=== PATIENT | male | born 1950 | race Caucasian/White ===

== ENCOUNTER 2021-06-04 17:05 | Outpatient (CLI) | payer OTHER | END 2021-06-04 17:06 | disposition critical access hospital (66) | LOC: EMS 17:05 | DX: R07.9 Chest pain, unspecified (principal); I48.91 Unspecified atrial fibrillation | CPT/HCPCS: A0425; A0427 ==

== ENCOUNTER 2021-06-04 17:21 | Inpatient (IN) | payer OTHER, MEDICARE ==
--- NOTE | 2021-06-04 17:53 | ED Physician Documentation ---
PD HPI CHEST PAIN - Stated complaint Stated Complaint: CP - Chief complaint Chief Complaint: Cardiac - History obtained from History obtained from: Patient - Additional information Additional information: 71-year-old gentleman with no history of known coronary disease, negative stress testing about 5 years ago, comorbidities include morbid obesity, hypertension, and hyperlipidemia. He was watching the [place] game and around 3 PM and developed sudden severe diffuse chest pain associated with shortness of breath, sweatiness and nausea. It started after eating a pork chop. It has mostly abated now. There is some still very mild low chest pressure. Review of Systems Ten Systems: 10 systems reviewed and negative Constitutional: reports: Reviewed and negative Throat: reports: Reviewed and negative Respiratory: reports: Reviewed and negative PD PAST MEDICAL HISTORY - Present Medications Home Medications: Ambulatory Orders Medication Instructions Recorded Confirmed Amlodipine Besylate [Norvasc] 10 mg PO DAILY 06/04/21 06/04/21 Colchicine 0.6 mg PO DAILY 06/04/21 06/04/21 Losartan Potassium [Cozaar] 100 mg PO BID 06/04/21 06/04/21 Simvastatin [Zocor] 40 mg PO HS 06/04/21 06/04/21 allopurinoL [Zyloprim] 100 mg PO DAILY 06/04/21 06/04/21 metOLazone [Metolazone] 5 mg PO DAILY 06/04/21 06/04/21 - Allergies Allergies/Adverse Reactions: Allergies Allergy/AdvReac Type Severity Reaction Status Date / Time No Known Drug Allergies Allergy Verified 06/04/21 17:39 PD ED PE NORMAL - Vitals Vital signs reviewed: Yes - General General: Alert and oriented X 3, No acute distress - HEENT HEENT: PERRL, EOMI - Neck Neck: Supple, no meningeal sign, No bony TTP - Cardiac Cardiac: RRR, No murmur - Respiratory Respiratory: No respiratory distress, Clear bilaterally - Abdomen Abdomen: Normal bowel sounds, Soft, Other (Mild upper abdominal tenderness, slightly worse on the right than the left,) - Back Back: No CVA TTP, No spinal TTP - Extremities Extremities: No edema, No calf tenderness / cord, Other (Venous stasis changes of both legs) - Neuro Neuro: Alert and oriented X 3, Normal speech - Psych Psych: Normal mood, Normal affect Results - Vitals Vitals: Vital Signs - 24 hr 06/04/21 06/04/21 06/04/21 17:33 19:39 21:00 Temperature 37.1 C Heart Rate 97 85 83 Respiratory 16 16 16 Rate Blood Pressure 144/63 H 160/97 H 137/73 H O2 Saturation 95 95 96 Oxygen O2 Source Room air - EKG (time done) 1736 Rate: Rate (enter#) (89) Rhythm: NSR (With frequent PACs) [place]: Normal Intervals: Prolonged FL, Other (LAFB) QRS: Normal Ischemia: Normal ST segments, Non specific changes - Labs Labs: Laboratory Tests 06/04/21 06/04/21 06/04/21 17:53 17:53 17:53 WBC 8.8 RBC 3.92 L Hgb 12.9 L Hct 40.4 L MCV 103.1 H MCH 32.9 H MCHC 31.9 L RDW 14.6 Plt Count 173 MPV 9.5 Neut # (Auto) 6.8 H Lymph # (Auto) 1.2 L [place] # (Auto) 0.6 Eos # (Auto) 0.2 Baso # (Auto) 0.1 Absolute Nucleated RBC 0.00 Nucleated RBC % 0.0 Sodium 143 Potassium 3.7 Chloride 103 Carbon Dioxide 29 Anion Gap 11.0 BUN 32 H Creatinine 1.7 H Estimated GFR (MDRD) 40 L Glucose 111 H Calcium 9.0 Total Bilirubin 1.0 AST 138 H ALT 104 H Alkaline Phosphatase 81 Troponin I High Sens 13.8 Total Protein 7.1 Albumin 3.9 Globulin 3.2 Albumin/Globulin Ratio 1.2 Lipase 2544 H Ethyl Alcohol 06/04/21 17:53 WBC RBC Hgb Hct MCV MCH MCHC RDW Plt Count MPV Neut # (Auto) Lymph # (Auto) [place] # (Auto) Eos # (Auto) Baso # (Auto) Absolute Nucleated RBC Nucleated RBC % Sodium Potassium Chloride Carbon Dioxide Anion Gap BUN Creatinine Estimated GFR (MDRD) Glucose Calcium Total Bilirubin AST ALT Alkaline Phosphatase Troponin I High Sens Total Protein Albumin Globulin Albumin/Globulin Ratio Lipase Ethyl Alcohol < 5.0 PD MEDICAL DECISION MAKING - ED course ED course: 71-year-old gentleman presents with acute chest pain, on exam he does have some upper abdominal tenderness. Although his pain is much better than it was at home. He does not drink of significance. He did have 2 drinks a couple of nights ago. Used to drink heavily maybe 8 years ago. Work-up demonstrates biochemical pancreatitis with lipase of 2552 and very mild transaminitis without biochemical evidence of obstruction. Ultrasound showing potential cholecystitis, but no stones and this was followed by CT showing no biliary ductal dilatation etc. Case was discussed by phone with Dr. Bhatia, our on-call surgeon who will consult but does not feel like the patient needs urgent surgery. Spoke with Dr. Tran for admission at approximately 9:30 PM. Departure - Departure Disposition: 66 [facility] DC/Xfer Clinical Impression: Pancreatitis Condition: Good Record reviewed to determine appropriate education?: Yes
--- NOTE | 2021-06-04 17:59 | XRAY Report ---
PROCEDURE: Chest 1 View X-Ray INDICATIONS: Chest Pain TECHNIQUE: One view of the chest was acquired. COMPARISON: None FINDINGS: Surgical changes and devices: None. Lungs and pleura: Low lung volumes can be seen, causing a crowded appearance to the lung markings. M ild interstitial prominence can be seen. On the semiupright images, no large pneumothorax or large pl eural effusions can be seen. There is elevation right hemidiaphragm. Mediastinum: Mediastinal contours appear normal. Heart size is normal. Bones and chest wall: No suspicious bony lesions. Overlying soft tissues appear unremarkable. IMPRESSION: Limited chest study, with low lung volumes. Mild interstitial prominence can be seen. In this patient with low lung volumes, differential diagnos is includes artifact and pulmonary edema. Atypical infiltrate (including COVID pneumonia) is also pos sible, yet considered to be less likely. Please consider a short-term follow-up 2 view chest series (performed in deep inspiration) for furthe r evaluation. Elevation of the right hemidiaphragm can be seen. Reviewed by: Ambrosio Guerrero MD on 06/04/2021 4:58 PM [place] Approved by: Ambrosio Guerrero MD on 06/04/2021 4:58 PM [facility] Station ID: [id number]
[2021-06-04 18:05] LABS: BASOPHILS # (AUTO) 0.1 10^3/uL (0.0-0.1); BASOPHILS % (AUTO) 0.6 %; EOSINOPHILS # (AUTO) 0.2 10^3/uL (0.0-0.7); EOSINOPHILS % (AUTO) 1.8 %; HCT - HEMATOCRIT 40.4 % (42.0-52.0); HGB - HEMOGLOBIN 12.9 g/dL (14.0-18.0); LYMPHOCYTES # (AUTO) 1.2 10^3/uL (1.5-3.5); MEAN CORPUSCULAR HEMOGLOBIN 32.9 pg (27.0-31.0); MEAN CORPUSCULAR HGB CONC 31.9 g/dL (32.0-36.0); MEAN CORPUSCULAR VOLUME 103.1 fL (80.0-94.0); MEAN PLATELET VOLUME 9.5 fL (7.4-11.4); MONOCYTES # (AUTO) 0.6 10^3/uL (0.0-1.0); MONOCYTES % (AUTO) 7.1 %; NEUTROPHILS # (AUTO) 6.8 10^3/uL (1.5-6.6); NEUTROPHILS % (AUTO) 77.2 %; PLT - PLATELET COUNT 173 10^3/uL (130-450); RED BLOOD COUNT 3.92 10^6/uL (4.70-6.10); RED CELL DISTRIBUTION WIDTH 14.6 % (12.0-15.0); WHITE BLOOD COUNT 8.8 x10^3/uL (4.8-10.8)
[2021-06-04 18:48] LABS: ALBUMIN 3.9 g/dL (3.2-5.5); CREATININE 1.7 mg/dL (0.6-1.2); POTASSIUM 3.7 mmol/L (3.5-5.0); TOTAL PROTEIN 7.1 g/dL (6.7-8.2)
[2021-06-04 18:49] LABS: ALBUMIN/GLOBULIN RATIO 1.2 (1.0-2.2)
--- NOTE | 2021-06-04 19:21 | Ultrasound Report ---
PROCEDURE: Abdomen Limited INDICATIONS: RUQ pain TECHNIQUE: Real-time focused scanning was performed of the abdomen, with image documentation. COMPARISON: None FINDINGS: Suboptimal technical quality reportedly due to patient body habitus and difficulty with co operation. Visible portions of the liver diffusely echogenic. The liver is enlarged measuring about 21.8 cm in l ength. No perihepatic fluid. The visible portions of the gallbladder demonstrate internal nodularity suggesting adenomyomatosis or several tiny adherent polyps. No dominant stones are visible. There is questionable wall thickening up to 6 mm. There was a positive Hendrickson's sign per the technologist. The neck of the gallbladder was not well seen due to lack of good acoustic window. The extrahepatic common duct is normal caliber measuring 6 mm. The pancreas was not well seen. The stewart bmitted images the right kidney are normal. IMPRESSION: 1. Findings equivocal for acute cholecystitis given suboptimal technical quality. 2. There is wall thickening and a reported sonographic Hendrickson's sign, but no visible obstructing ston e. 3. Internal nodularity of the gallbladder lumen suggests adenomyomatosis, tiny adherent granular calc deya, or tiny cholesterol polyps. 4. Clinical correlation is recommended. Reviewed by: Luz Moore MD on 06/04/2021 7:19 PM PST Approved by: Luz Moore MD on 06/04/2021 7:19 PM PST Station ID: [id number]
[2021-06-04] MEDS ORDERED: IOVERSOL 320 100 ML VIAL IVP ONE ×2 (19:44→20:15)
--- NOTE | 2021-06-04 21:00 | CT Report ---
PROCEDURE: Abdomen/Pelvis W INDICATIONS: IV only pancreatitis CONTRAST: IV CONTRAST: Optiray 320 ml: 100 PO CONTRAST: *NO PO CONTRAST TECHNIQUE: After the administration of IV contrast, 5 mm thick sections acquired from the diaphragms to the symp hysis. 5 mm thick coronal and sagittal reformats were acquired. For radiation dose reduction, the f ollowing was used: automated exposure control, adjustment of mA and/or kV according to patient size. COMPARISON: None. Correlation made to ultrasound performed the same day. FINDINGS: Image quality: Excellent. ABDOMEN: Lung bases: Atelectatic changes present at the right lung base. Asymmetric elevation of the right hem idiaphragm. Heart size is normal. There is moderate coronary artery calcification. No hiatal hernia. Solid organs: The liver is normal size and attenuation. No masses. The gallbladder has normal CT appe arance without evidence of wall thickening or calcified stones. The common duct is normal caliber. No pericholecystic fluid or fat stranding. The spleen is normal size. No adrenal nodules. There is mild inflammation around the uncinate process of the pancreas and slight adjacent fascial th ickening. The body and tail are normal. There is no ductal dilatation. The kidneys are normal for siz e. There are cystic lesions present arising exophytically from both kidneys. No hydronephrosis or sto pamela. Ureters are nondilated.. Peritoneum and bowel: Stomach and bowel loops demonstrate normal wall thickness and caliber. Normal appendix. No free fluid or air. Nodes and vessels: No retroperitoneal or mesenteric adenopathy by size criteria. Aorta and inferior vena cava are normal in size. Moderate abdominal aortic calcification. Miscellaneous: No ventral he rnias. PELVIS: Genitourinary: Bladder wall thickness is normal. Normal prostate. Miscellaneous: No inguinal hernias or adenopathy. Bones: No suspicious bony lesions. No vertebral body compression fractures. Multilevel degenerative disc height loss throughout the lumbar spine with multilevel mild central canal stenosis. IMPRESSION: 1. Findings of mild acute pancreatitis of the uncinate process. 2. Normal CT appearance of the gallbladder. 3. Bilateral renal cysts. Reviewed by: Luz Moore MD on 06/04/2021 8:59 PM PST Approved by: Luz Moore MD on 06/04/2021 8:59 PM PST Station ID: [id number]
[2021-06-04] MEDS: D5.45NS W/20 MEQ KCL 1,000 ML IV SCH (21:27)
[2021-06-04] MEDS ORDERED: SODIUM CHLORIDE FLUSH 0.9% 10 ML SYRINGE IVP PRN (21:43)
[2021-06-04] MEDS ORDERED: ACETAMINOPHEN 1,000 MG/100 ML 100 ML IV PRN (21:46)
[2021-06-04] MEDS ORDERED: NITROGLYCERIN SL 0.4 MG TABLET SL PRN (21:48)
--- NOTE | 2021-06-04 21:54 | HISTORY & PHYSICAL EXAMINATION ---
Chief Complaint - Chief Complaint Chief Complaint: Chest pain and abdominal pain History of Present Illness - Admitted From Admitted From:: ED - History Obtained From History obtained from: ED provider and the patient - History of Present Illness HPI Comment/Other: This is a 71-year-old white male with history of morbid obesity (BMI 50), hypertension, gout, and hyperlipidemia. He used to drink alcohol heavily, but quit 7 years ago, now drinks only rareely. Patient presents with sudden onset of chest pain and upper abdominal pain that occurred after he ate a pork chop. It was assosiated with SOB and sweating. He has never had such symptoms before. His gave him a baby aspirin and they called an ambulance. By the time he presented to the ED the chest pain was gone (it lasted 30-45 min). His exam showed a tender upper abdomen. He underwent an abdominal ultrasound which showed suspicious gallbladder findings. Then he had a CT of the abdomen which showed mild pancreatitis and no gallbladder abnormality. Labs showed white count normal, AST and ALT mildly elevated, normal bilirubin, and elevated lipase level of 2500. The patient is being admitted as Inpatient for treatment of acute pancreatitis and evaluation of chest pain in a male with significant risk factors. We discussed his CODE BLUE wishes and he wants to be a Full Code. History - Past Medical History Cardiovascular: reports: Hypertension, High cholesterol Respiratory: reports: Sleep apnea, CPAP use Neuro: reports: None, Peripheral neuropathy Endocrine/Autoimmune: reports: None GI: reports: Ulcers : reports: Renal insuffiency HEENT: reports: Chronic hearing loss Psych: reports: None Musculoskeletal: reports: Gout, Other (He requires a walker for ambulating because of right knee and hip pain. Surgery is planned on these when he loses 130 lbs.) Derm: reports: Other (Has wound on posterior thigh, sees a wound provider.) MRSA Hx?: No - Family & Social History Family History: Mother: (Heart disease ran in the father's side), Father: , Other family: Alive and Well (2 adult children) Family History Comment/Other: He is an only child. Living arrangement: At home Living Situation: With spouse/s.o. Social History Notes: Quit smoking and quit alcohol heavy use 7 years ago. No recreational drug use history. 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 They bought a house in [place] and are planning to move here when he retires in 1 year. - Substance History Use: Uses substance without health or social issues: Alcohol Meds/Allgy - Home Medications Home Medications: Ambulatory Orders Medication Instructions Recorded Confirmed Amlodipine Besylate [Norvasc] 10 mg PO DAILY 06/04/21 06/04/21 Colchicine 0.6 mg PO DAILY 06/04/21 06/04/21 Losartan Potassium [Cozaar] 100 mg PO BID 06/04/21 06/04/21 Simvastatin [Zocor] 40 mg PO HS 06/04/21 06/04/21 allopurinoL [Zyloprim] 100 mg PO DAILY 06/04/21 06/04/21 metOLazone [Metolazone] 5 mg PO DAILY 06/04/21 06/04/21 - Allergies Allergies/Adverse Reactions: Allergies Allergy/AdvReac Type Severity Reaction Status Date / Time No Known Drug Allergies Allergy Verified 06/04/21 17:39 Review of Systems - Cardiovascular Cariovascular: reports: Chest pain - Respiratory Respiratory: reports: Apnea - Gastrointestinal Gastrointestinal: reports: Abdominal pain - All Other Systems All Other Systems: reports: Reviewed and negative Exam - Vital Signs Reviewed Vital Signs: Yes Vital Signs: Vital Signs x48h Temp Pulse Resp BP Pulse Ox 06/04/21 21:00 83 16 137/73 H 96 06/04/21 19:39 85 16 160/97 H 95 06/04/21 17:33 37.1 C 97 16 144/63 H 95 - Physical Exam General Appearance: positive: Mild distress (He rates his abdominal pain at a 4- 6/10 currently) Eyes Bilateral: positive: Normal inspection, EOMI ENT: positive: ENT inspection nml, No signs of dehydration Neck: positive: Nml inspection, No JVD Respiratory: positive: No respiratory distress, Breath sounds nml Cardiovascular: positive: Regular rate & rhythm (Very distant heart sounds becau se of morbid obesity) Abdomen: positive: Other (Obese with pannus, distended and hypertympanic, diminished bowel sounds, no guarding or rebound) Skin: positive: Warm, Dry Extremities: positive: Other (1+ pretibial edema and venous stasis changes of the shins. The left posterior upper thigh has a pressure ulcer) Neurologic/Psychiatric: positive: Oriented x3 (Non-focal) Conclusion/Plan - Problem List (1) Pancreatitis Conclusion/Plan: Etiology is unclear as he denies alcohol abuse, his last drink was 2 days ago, and we found no gallbladder abnormality with imaging. Admit to having been told he has high triglycerides which may be the cause. Will order bowel rest with strict n.p.o. except ice chips. We will give IV pain meds. We will change his usual home medications to IV forms. Follow lipase daily. Check fasting triglyceride level in a.m. Qualifiers: Chronicity: acute Pancreatitis type: unspecified pancreatitis type (2) Chest pain Conclusion/Plan: His admission EKG is abnormal, showing QS waves in V1 and V2, suggesting old rodo-septal [place]. He has never been at this hospital before, to see a comparison EKG. This patient's cardiac risk factors for CAD include male gender, morbid obesity, hypertension, hyperlipidemia. Will order serial troponins. Will order sublingual nitroglycerin as needed for recurrence of any chest pain. We will consider doing stress testing as an inpatient if his abdominal pain from pancreatitis is under control. (3) HTN (hypertension) Conclusion/Plan: He is on amlodipine and metolazone which control blood pressure for him at home. We will switch to IV meds while he is n.p.o. and use hydralazine scheduled for blood pressure control (4) Sleep apnea with use of continuous positive airway pressure (CPAP) Conclusion/Plan: Will order his home CPAP device to be brought in and used while he is here (5) CKD (chronic kidney disease) stage 3, GFR 30-59 ml/min Conclusion/Plan: As per Hx. Avoid nephrotoxins (6) Gout Conclusion/Plan: He will be without his colchicine while he is n.p.o. (7) Macrocytic anemia Conclusion/Plan: This is a suspicious finding if he states that he now has not abused alcohol in over 7 years. We will check B12 and folate levels and replace if low (8) Pressure ulcer of left thigh Conclusion/Plan: Likely relate to his morbid obesity. Will order [facility] wound clinic consult, topical care, turning and repositioning. (9) Morbid obesity with BMI of 50.0-59.9, adult Conclusion/Plan: As per Hx He has chronic venous stasis changes. Will order leg elevation whenever he is out of bed in a chair - Lab Results Fish Bones: 06/04/21 17:53 06/04/21 17:53 - EKG Results EKG Interpreted Independently: Yes EKG Comparison: Old EKG unavailable EKG Findings: Sinus rhythm, rate 89, frequent PACs, left anterior fascicular block, QS waves in V1 and V2 and poor R wave progression. - Other Other Results/Comments: Attestation: The patient is expected to be discharged or transferred to another facility within 96 hours: Yes.
[2021-06-04] MEDS ORDERED: D5.45NS W/20 MEQ KCL 1,000 ML IV SCH (22:00)
[2021-06-04 22:40] LABS: B. PARAPERTUSSIS- RESP PCR PAN NOT DETECTED; B. PERTUSSIS- RESP PCR PANEL NOT DETECTED; C. PNEUMONIAE- RESP PCR PANEL NOT DETECTED; CORONAVIRUS 229E-RESP PCR NOT DETECTED; CORONAVIRUS HKU1-RESP PCR NOT DETECTED; CORONAVIRUS NL63-RESP PCR NOT DETECTED; CORONAVIRUS OC43-RESP PCR NOT DETECTED; HUMAN METAPNEUMOVIRUS NOT DETECTED; INFLUENZA A- RESP PCR PANEL NOT DETECTED; INFLUENZA B - RESP PCR PANEL NOT DETECTED; M. PNEUMONIAE- RESP PCR PANEL NOT DETECTED; PARAINFLUENZA VIRUS 1 NOT DETECTED; PARAINFLUENZA VIRUS 2 NOT DETECTED; PARAINFLUENZA VIRUS 3 NOT DETECTED; PARAINFLUENZA VIRUS 4 NOT DETECTED; RHINOVIRUS/ENTEROVIRUS NOT DETECTED; RSV- RESP PCR PANEL NOT DETECTED; SARS-CoV-2 -RESP PCR PANEL NOT DETECTED
[2021-06-04] MEDS: hydrALAZINE INJ 20 MG/ML VIAL IVP SCH (23:17)
[2021-06-04] MEDS: SODIUM CHLORIDE FLUSH 0.9% 10 ML SYRINGE IVP SCH ×2 (23:20→23:48)
[2021-06-04] MEDS: HYDROmorphone 1 MG/ML CARPUJECT IVP PRN (23:47)
[2021-06-05] MEDS: NYSTATIN POWDER 15 GM TOP SCH ×3 (00:39→20:24)
[2021-06-05] MEDS: SODIUM CHLORIDE FLUSH 0.9% 10 ML SYRINGE IVP SCH ×2 (05:20→23:47)
[2021-06-05] MEDS: HYDROmorphone 1 MG/ML CARPUJECT IVP PRN ×3 (05:20→16:17)
[2021-06-05] MEDS: D5.45NS W/20 MEQ KCL 1,000 ML IV SCH ×3 (05:25→22:24)
[2021-06-05 06:11] LABS: BASOPHILS % (AUTO) 0.6 %; EOSINOPHILS # (AUTO) 0.3 10^3/uL (0.0-0.7); EOSINOPHILS % (AUTO) 5.1 %; HCT - HEMATOCRIT 38.2 % (42.0-52.0); HGB - HEMOGLOBIN 12.3 g/dL (14.0-18.0); LYMPHOCYTES # (AUTO) 1.8 10^3/uL (1.5-3.5); LYMPHOCYTES % (AUTO) 27.9 %; MEAN CORPUSCULAR HEMOGLOBIN 33.2 pg (27.0-31.0); MEAN CORPUSCULAR HGB CONC 32.2 g/dL (32.0-36.0); MEAN CORPUSCULAR VOLUME 103.2 fL (80.0-94.0); MEAN PLATELET VOLUME 9.5 fL (7.4-11.4); MONOCYTES # (AUTO) 0.6 10^3/uL (0.0-1.0); MONOCYTES % (AUTO) 9.8 %; NEUTROPHILS # (AUTO) 3.6 10^3/uL (1.5-6.6); NEUTROPHILS % (AUTO) 56.4 %; PLT - PLATELET COUNT 179 10^3/uL (130-450); RED CELL DISTRIBUTION WIDTH 14.6 % (12.0-15.0); WHITE BLOOD COUNT 6.3 x10^3/uL (4.8-10.8)
[2021-06-05] MEDS: hydrALAZINE INJ 20 MG/ML VIAL IVP SCH ×2 (06:15→16:17)
[2021-06-05 06:38] LABS: ALBUMIN 3.9 g/dL (3.2-5.5); ALBUMIN/GLOBULIN RATIO 1.4 (1.0-2.2); BILIRUBIN,TOTAL 0.7 mg/dL (0.2-1.0); CALCIUM 8.8 mg/dL (8.5-10.3); CREATININE 1.4 mg/dL (0.6-1.2); POTASSIUM 3.5 mmol/L (3.5-5.0); TOTAL PROTEIN 6.7 g/dL (6.7-8.2)
[2021-06-05 06:51] LABS: FOLATE 23.13 ng/mL (5.90 - >24.8)
[2021-06-05 09:16] LABS: CHOL/HDL RATIO 1.9 (<5.0); CHOLESTEROL 127 mg/dL; HDL CHOLESTEROL 68 mg/dL; LDL CHOLESTEROL,CALCULATED 42 mg/dL; LDL/HDL RATIO 0.6 (<3.6); TRIGLYCERIDES 86 mg/dL; VLDL CHOLESTEROL 17 mg/dL
--- NOTE | 2021-06-05 10:00 | CONSULTATION NOTE ---
Referring Provider Consult Date: 06/05/21 Chief Complaint - Chief Complaint Chief Complaint: epigastric pain History of Present Illness - Admitted From Admitted From:: ED - History Obtained From Records Reviewed: yes History obtained from: pt Exam Limitations: none - History of Present Illness HPI Comment/Other: Acute onset epigastric pain yesterday late afternoon. Pain then became more diffuse abdomen. He thought he might be having a heart attack and came to the ED. [place] is visiting from out of town. [place]. Work up pancreatitis. He denies similar symptoms. He denies history of heart disease or lung disease. His mobility is limited. He uses a walker. He is still working as a contractor. Desk work. History - Past Medical History Cardiovascular: reports: Hypertension, High cholesterol Respiratory: reports: Sleep apnea, CPAP use Neuro: reports: None, Peripheral neuropathy Endocrine/Autoimmune: reports: None GI: reports: Ulcers : reports: Renal insuffiency HEENT: reports: Chronic hearing loss Psych: reports: None Musculoskeletal: reports: Gout, Other (He requires a walker for ambulating because of right knee and hip pain. 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 Living arrangement: At home Living Situation: With spouse/s.o. Social History Notes: Quit smoking and quit alcohol heavy use 7 years ago. No recreational drug use history. 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 They bought a house in [place] and are planning to move here when he retires in 1 year. - Substance History Use: Uses substance without health or social issues: Alcohol Meds/Allgy - Home Medications Home Medications: Ambulatory Orders Medication Instructions Recorded Confirmed Amlodipine Besylate [Norvasc] 10 mg PO DAILY 06/04/21 06/04/21 Colchicine 0.6 mg PO DAILY 06/04/21 06/04/21 Losartan Potassium [Cozaar] 100 mg PO BID 06/04/21 06/04/21 Simvastatin [Zocor] 40 mg PO HS 06/04/21 06/04/21 allopurinoL [Zyloprim] 100 mg PO DAILY 06/04/21 06/04/21 metOLazone [Metolazone] 5 mg PO DAILY 06/04/21 06/04/21 - Allergies Allergies/Adverse Reactions: Allergies Allergy/AdvReac Type Severity Reaction Status Date / Time No Known Drug Allergies Allergy Verified 06/04/21 17:39 Review of Systems - Other Findings Other Findings: 10 pt ros as above otherwise unremarkable Exam - Vital Signs Reviewed Vital Signs: Yes Vital Signs: Vital Signs x48h Temp Pulse Resp BP BP Pulse Ox 06/05/21 07:45 36.3 C L 60 18 133/78 H 95 06/05/21 06:15 69 16 125/73 125/73 06/05/21 05:04 36.3 C L 65 16 133/82 H 95 - Physical Exam General Appearance: positive: No acute distress, Alert Eyes Bilateral: positive: PERRL, EOMI, No scleral icterus ENT: positive: No signs of dehydration Neck: positive: No JVD Respiratory: positive: No respiratory distress Abdomen: positive: Non-tender, No distention Neurologic/Psychiatric: positive: Oriented x3 Conclusion/Plan - Problem List (1) Pancreatitis Conclusion/Plan: He appears to have mild pancreatitis likely from gallbladder sludge. We discussed pancreatitis can be severe and it could happen again. Low fat diet is recommended. He may very slowly advance his diet as tolerated. He should consider gallbladder surgery. Surgery during this hospitalization is not necessary. He plans on moving to [facility] soon. Currently he is still living and working in [facility]. That is where he receives his medical care. Plan follow up with surgery there of follow up with [facility] surgical care as desired after discharge. Surgery and recovery briefly discussed. ok to have clears today. Qualifiers: Chronicity: acute Pancreatitis type: unspecified pancreatitis type - Lab Results Fish Bones: 06/05/21 05:52 06/05/21 05:52 - Diagnostic Imaging Results Diagnostic Imaging Results: positive: Other (gallbladder sludge present mild pancreatitis present by ct no gallbladder inflammation)
--- NOTE | 2021-06-05 11:09 | PHARMACY PROGRESS NOTE ---
- Best Possible Medication History Admit Date and Time: 06/04/212131 Processed by: Pharmacy Medication History completed: Yes Patient Interview: Completed As the person ultimately responsible for medication therapy, providers are able to order a medication from an existing home medication list in [facility] via the "Reconcile Routine" prior to Confirmation of that medication by production support consultant. Such practice is discouraged except when the physician, in their clinical esther gment, deems that a medical need exists for a medication without regard to previous use.
--- NOTE | 2021-06-05 20:48 | PROVIDER PROGRESS NOTE ---
Assessment/Plan - Problem List (1) Pancreatitis Qualifiers: Chronicity: acute Pancreatitis type: unspecified pancreatitis type Assessment/Plan: Improving clinically with no pain after jello and decreasing Lipase level from 2500 to 500 today. Etiology is felt to be from gallbladder sludge. Will advance diet. Will decrease iv fluid rate. Follow Lipase level daily. The Gen cloud consultant, Dr Bhatia advised elective GB surgery. Because this pt had CP and has an abnormal EKG, he will need a stress test be done before any elective surgery is done. The pt thinks he will get attention to all this here, since he has a house in [place], before returning to [place], however he has no PCP here. (2) Chest pain Assessment/Plan: No further CP. Trops were neg for acute corinary syndrome. His admission EKG is abnormal, showing QS waves in V1 and V2, suggesting old rodo-septal [place]. He has never been at this hospital before, to see a comparison EKG. This patient's cardiac risk factors for CAD include male gender, morbid obesity, hypertension, hyperlipidemia. The Gen cloud consultant, Dr Bhatia, advised elective GB surgery. Because this pt had CP and an abnormal EKG, he will need a stress test be done before any elective surgery is done. We discussed the type of stress test, since he walks with a walker: he will need a non-walking Lexiscan Nuclear stress test. The pt thinks he will get attention to all this here, since he has a house in [place], before returning to [place], however he has no PCP here. He should be [facility] with new prescription for prn sl NTG to use if gets chest pain again. (3) HTN (hypertension) Assessment/Plan: IV Hydrtalazine scheduled was ordered while he was NPO. Will resume his usual Amlodipine, as we are advancing his diet, and make iv Hydralazine prn. Not resuming the Losartan yet, until BUN/creat improve. (4) Sleep apnea with use of continuous positive airway pressure (CPAP) Assessment/Plan: Home CPAP device ordered to use here (5) CKD (chronic kidney disease) stage 3, GFR 30-59 ml/min Assessment/Plan: Slight improvement after iv fluids Avoid nephrotoxins. Continue fluids but will decrease the rate slightly. Follow BMP daily (6) Gout Assessment/Plan: Will resume his home dose of Allopurinol (7) Macrocytic anemia Assessment/Plan: Normal B12 and Folate levels. No replacement needed. (8) Pressure ulcer of left thigh Assessment/Plan: MAC wound clinic consult ordered. (9) Morbid obesity with BMI of 50.0-59.9, adult Assessment/Plan: As per Hx. - Current Meds Current Meds: Current Medications Generic Name Dose Route Start Last Admin Trade Name Freq PRN Reason Stop Dose Admin Hydralazine HCl 10 mg 06/04/21 23:00 06/05/21 16:17 Hydralazine Inj 20 Mg/Ml Vial IVP 10 mg Q8H CARLOS ALBERTO Administration Hydromorphone HCl 1 mg 06/04/21 21:46 06/05/21 16:17 Hydromorphone 1 Mg/Ml Carpuject IVP 1 mg Q4HR PRN Administration PAIN >8 Acetaminophen 100 mls @ 400 mls/hr 06/04/21 21:46 06/04/21 23:34 Ofirmev IV Infused Q6HR PRN Infusion Pain or Fever > 38C (100.4F) Nystatin 1 applic 06/04/21 23:45 06/05/21 20:24 Nystatin Powder 15 Gm TOP 1 applic BID CARLOS ALBERTO Administration Sodium Chloride 10 ml 06/05/21 01:00 06/05/21 05:20 Sodium Chloride Flush 0.9% 10 Ml Syringe IVP 10 ml 0100,0900,1700 CARLOS ALBERTO Administration - Lab Result Fish Bone Diagrams: 06/05/21 05:52 06/05/21 05:52 - Additional Planning My Orders: My Active Orders 06/04/21 21:43 Initiate Lung Inflation Protoc [RC] .PROTOCOL Oxygen Therapy [RC] .PRN Telemetry- [RC] Q4HR Sodium Chloride Flush 0.9% [Normal Saline Flush 0.9%] 10 ml IVP PRN PRN 06/04/21 21:44 Activity Orders [RC] Q2HR IO [RC] IOSHIFT IV Insert [RC] .ONCE Initiate Bowel Care Protocol [RC] .protocol Initiate Line Care Protocol [RC] QSHIFT Initiate Personal Care Protoco [RC] .protocol Vital Signs [RC] Q4HR Code Status [OTHERS] Routine Condition of Patient [OTHERS] Routine DVT Prophylaxis [OTHERS] Routine 06/04/21 21:45 SCDs [RC] QSHIFT General Surgery Consult [CONS] Routine 06/04/21 21:46 Acetaminophen 1,000 mg/100 ml [Ofirmev] 100 ml IV Q6HR HYDROmorphone 1MG CARP [Dilaudid 1Mg Carp] 1 mg IVP Q4HR PRN 06/04/21 21:48 Nitroglycerin [Nitrostat] 0.4 mg SL Q5MIN PRN 06/04/21 21:49 Miscellaenous Nursing Order [RC] [facility] 06/04/21 22:07 Home CPAP/BiPAP [RC] .ONCE 06/04/21 23:00 hydrALAZINE INJ [Apresoline Inj] 10 mg IVP Q8H 06/04/21 23:45 Nystatin [Nystop] 1 applic TOP BID 06/05/21 01:00 Sodium Chloride Flush 0.9% [Normal Saline Flush 0.9%] 10 ml IVP 0100,0900,1700 06/05/21 Dinner Clear Liquid Diet [DIET] 06/05/21 20:43 D5.45ns W/20 Meq KCl 1,000 ml IV 83.33 mls/hr 06/05/21 21:00 Simvastatin [Zocor] 40 mg PO HS 06/06/21 05:00 CBC - COMP BLD CT W/AUTO DIFF [HEME] DAILYLAB CMP [COMPREHENSIVE METABOLIC PANEL] [CHEM] DAILYLAB LIPASE [CHEM] DAILYLAB 06/06/21 09:00 Amlodipine Besylate [Norvasc] 10 mg PO DAILY Colchicine [Colcrys] 0.6 mg PO DAILY allopurinoL [Zyloprim] 100 mg PO DAILY 06/07/21 05:00 CBC - COMP BLD CT W/AUTO DIFF [HEME] DAILYLAB CMP [COMPREHENSIVE METABOLIC PANEL] [CHEM] DAILYLAB LIPASE [CHEM] DAILYLAB Subjective - Subjective Patient Reports: Feeling Better (Tolerated a bite of jello after Gen surgeon recommended to advance diet to clears, without epigastric pain. Still having mid abd pain needing Dilaudid. Is passing gas, no BMs.) Objective Vital Signs: Vital Signs - 24 hr 06/04/21 06/04/21 06/04/21 21:00 22:33 23:01 Temperature 36.6 C Heart Rate 83 Heart Rate [ 74 80 Brachial] Respiratory 16 20 Rate Blood Pressure 137/73 H Blood Pressure 149/76 H 149/76 H [Right Brachial artery] Blood Pressure [Right Radial artery] O2 Saturation 96 94 06/04/21 06/04/21 06/04/21 23:17 23:18 23:34 Temperature Heart Rate Heart Rate [ 75 82 Brachial] Respiratory Rate Blood Pressure 155/65 H Blood Pressure 155/65 H 151/78 H [Right Brachial artery] Blood Pressure [Right Radial artery] O2 Saturation 06/04/21 06/04/21 06/05/21 23:51 23:59 00:11 Temperature 36.6 C Heart Rate Heart Rate [ 80 76 65 Brachial] Respiratory 18 Rate Blood Pressure Blood Pressure 120/71 136/68 H 131/70 H [Right Brachial artery] Blood Pressure [Right Radial artery] O2 Saturation 96 06/05/21 06/05/21 06/05/21 05:04 06:15 07:45 Temperature 36.3 C L 36.3 C L Heart Rate Heart Rate [ 65 69 60 Brachial] Respiratory 16 16 18 Rate Blood Pressure 125/73 Blood Pressure 133/82 H 125/73 133/78 H [Right Brachial artery] Blood Pressure [Right Radial artery] O2 Saturation 95 95 06/05/21 06/05/21 06/05/21 12:25 16:00 20:19 Temperature 36.4 C L 36.4 C L 36.4 C L Heart Rate Heart Rate [ 65 61 97 Brachial] Respiratory 18 16 16 Rate Blood Pressure Blood Pressure 135/80 H [Right Brachial artery] Blood Pressure 138/79 H 135/54 H [Right Radial artery] O2 Saturation 95 98 95 Oxygen O2 Source Room air I&O (Last 24 Hrs): Intake and Output Totals x24h 06/03/21 06/04/21 06/05/21 23:59 23:59 23:59 Intake Total 100 2295.833 Output Total 0 1495 Balance 100 800.833 General: Alert, Oriented x3 HEENT: Mucous membr. moist/pink Neck: Supple, No JVD Neuro: Alert, Non Focal Cardiovascular: Regular rate Respiratory: No respiratory distress Abdomen: Normal bowel sounds, Soft, No tenderness, Other (Obese with a pannus) Extremities: No edema, Other (Venous stasis of both shins) - Results Results: Laboratory Results WBC 6.3 x10^3/uL (4.8-10.8) 06/05/21 05:52 RBC 3.70 10^6/uL (4.70-6.10) L 06/05/21 05:52 Hgb 12.3 g/dL (14.0-18.0) L 06/05/21 05:52 Hct 38.2 % (42.0-52.0) L 06/05/21 05:52 MCV 103.2 fL (80.0-94.0) H 06/05/21 05:52 MCH 33.2 pg (27.0-31.0) H 06/05/21 05:52 MCHC 32.2 g/dL (32.0-36.0) 06/05/21 05:52 RDW 14.6 % (12.0-15.0) 06/05/21 05:52 Plt Count 179 10^3/uL (130-450) 06/05/21 05:52 MPV 9.5 fL (7.4-11.4) 06/05/21 05:52 Neut # (Auto) 3.6 10^3/uL (1.5-6.6) 06/05/21 05:52 Lymph # (Auto) 1.8 10^3/uL (1.5-3.5) 06/05/21 05:52 [place] # (Auto) 0.6 10^3/uL (0.0-1.0) 06/05/21 05:52 Eos # (Auto) 0.3 10^3/uL (0.0-0.7) 06/05/21 05:52 Baso # (Auto) 0.0 10^3/uL (0.0-0.1) 06/05/21 05:52 Absolute Nucleated RBC 0.00 x10^3/uL 06/05/21 05:52 Nucleated RBC % 0.0 /100WBC 06/05/21 05:52 Sodium 141 mmol/L (135-145) 06/05/21 05:52 Potassium 3.5 mmol/L (3.5-5.0) 06/05/21 05:52 Chloride 103 mmol/L (101-111) 06/05/21 05:52 Carbon Dioxide 28 mmol/L (21-32) 06/05/21 05:52 Anion Gap 10.0 (6-13) 06/05/21 05:52 BUN 25 mg/dL (6-20) H 06/05/21 05:52 Creatinine 1.4 mg/dL (0.6-1.2) H 06/05/21 05:52 Estimated GFR (MDRD) 50 (>89) L 06/05/21 05:52 Glucose 106 mg/dL (70-100) H 06/05/21 05:52 Calcium 8.8 mg/dL (8.5-10.3) 06/05/21 05:52 Magnesium 2.0 mg/dL (1.7-2.8) 06/05/21 05:52 Total Bilirubin 0.7 mg/dL (0.2-1.0) 06/05/21 05:52 AST 73 IU/L (10-42) H 06/05/21 05:52 ALT 91 IU/L (10-60) H 06/05/21 05:52 Alkaline Phosphatase 68 IU/L (42-121) 06/05/21 05:52 Troponin I High Sens 16.4 ng/L (2.3-19.7) 06/04/21 22:08 Total Protein 6.7 g/dL (6.7-8.2) 06/05/21 05:52 Albumin 3.9 g/dL (3.2-5.5) 06/05/21 05:52 Globulin 2.8 g/dL (2.1-4.2) 06/05/21 05:52 Albumin/Globulin Ratio 1.4 (1.0-2.2) 06/05/21 05:52 Triglycerides 86 mg/dL (-149) 06/05/21 05:52 Cholesterol 127 mg/dL (-199) 06/05/21 05:52 LDL Cholesterol, Calc 42 mg/dL (-129) 06/05/21 05:52 VLDL Cholesterol 17 mg/dL 06/05/21 05:52 HDL Cholesterol 68 mg/dL (60-) 06/05/21 05:52 LDL/HDL Ratio 0.6 (<3.6) 06/05/21 05:52 Cholesterol/HDL Ratio 1.9 (<5.0) 06/05/21 05:52 Lipase 540 U/L (22-51) H 06/05/21 05:52 Vitamin B12 708 pg/mL (180-914) 06/05/21 05:52 Folate 23.13 ng/mL (5.90 - >24.8) 06/05/21 05:52 Nasal Adenovirus (PCR) NOT DETECTED 06/04/21 21:38 Nasal B. parapertussis DNA (PCR) NOT DETECTED 06/04/21 21:38 Nasal Coronavir 229E PCR NOT DETECTED 06/04/21 21:38 Nasal Coronavir HKU1 PCR NOT DETECTED 06/04/21 21:38 Nasal Coronavir NL63 PCR NOT DETECTED 06/04/21 21:38 Nasal Coronavir OC43 PCR NOT DETECTED 06/04/21 21:38 Nasal Enterovir/Rhinovir PCR NOT DETECTED 06/04/21 21:38 Nasal Influenza B PCR NOT DETECTED 06/04/21 21:38 Nasal Influenza A PCR NOT DETECTED 06/04/21 21:38 Nasal Parainfluen 1 PCR NOT DETECTED 06/04/21 21:38 Nasal Parainfluen 2 PCR NOT DETECTED 06/04/21 21:38 Nasal Parainfluen 3 PCR NOT DETECTED 06/04/21 21:38 Nasal Parainfluen 4 PCR NOT DETECTED 06/04/21 21:38 Nasal RSV (PCR) NOT DETECTED 06/04/21 21:38 Nasal B.pertussis DNA PCR NOT DETECTED 06/04/21 21:38 Nasal C.pneumoniae (PCR) NOT DETECTED 06/04/21 21:38 Bart Human Metapneumo PCR NOT DETECTED 06/04/21 21:38 Nasal M.pneumoniae (PCR) NOT DETECTED 06/04/21 21:38 Nasal SARS-CoV-2 (PCR) NOT DETECTED 06/04/21 21:38 Ethyl Alcohol < 5.0 mg/dL 06/04/21 17:53
[2021-06-05] MEDS ORDERED: NON FORMULARY MED (Simvastatin [Zocor] 40 MG Tablet) PO SCH (21:00)
[2021-06-05] MEDS ORDERED: ATORVASTATIN 10 MG TABLET PO SCH (21:00)
[2021-06-05] MEDS ORDERED: hydrALAZINE INJ 20 MG/ML VIAL IVP PRN (22:03)
[2021-06-06 05:00] LABS: BASOPHILS # (AUTO) 0.1 10^3/uL (0.0-0.1); BASOPHILS % (AUTO) 0.8 %; EOSINOPHILS # (AUTO) 0.4 10^3/uL (0.0-0.7); EOSINOPHILS % (AUTO) 5.6 %; HCT - HEMATOCRIT 37.3 % (42.0-52.0); HGB - HEMOGLOBIN 11.7 g/dL (14.0-18.0); LYMPHOCYTES # (AUTO) 1.7 10^3/uL (1.5-3.5); LYMPHOCYTES % (AUTO) 21.6 %; MEAN CORPUSCULAR HEMOGLOBIN 32.7 pg (27.0-31.0); MEAN CORPUSCULAR HGB CONC 31.4 g/dL (32.0-36.0); MEAN CORPUSCULAR VOLUME 104.2 fL (80.0-94.0); MEAN PLATELET VOLUME 9.6 fL (7.4-11.4); MONOCYTES # (AUTO) 0.7 10^3/uL (0.0-1.0); MONOCYTES % (AUTO) 8.5 %; NEUTROPHILS % (AUTO) 63.2 %; PLT - PLATELET COUNT 164 10^3/uL (130-450); RED BLOOD COUNT 3.58 10^6/uL (4.70-6.10); RED CELL DISTRIBUTION WIDTH 14.7 % (12.0-15.0); WHITE BLOOD COUNT 7.9 x10^3/uL (4.8-10.8)
[2021-06-06 05:11] LABS: ALBUMIN 3.7 g/dL (3.2-5.5); ALBUMIN/GLOBULIN RATIO 1.3 (1.0-2.2); ALKALINE PHOSPHATASE 66 IU/L (42-121); ALT ALANINE AMINOTRANSFERASE 71 IU/L (10-60); AST ASPARTATE AMINOTRANSFERASE 43 IU/L (10-42); BILIRUBIN,TOTAL < 0.2 mg/dL (0.2-1.0); BUN - BLOOD UREA NITROGEN 18 mg/dL (6-20); CALCIUM 8.7 mg/dL (8.5-10.3); CARBON DIOXIDE - CO2 27 mmol/L (21-32); CHLORIDE 103 mmol/L (101-111); CREATININE 1.1 mg/dL (0.6-1.2); GFR - MDRD 66 (>89); GLUCOSE 98 mg/dL (70-100); LIPASE 45 U/L (22-51); POTASSIUM 3.6 mmol/L (3.5-5.0); SODIUM 139 mmol/L (135-145); TOTAL PROTEIN 6.5 g/dL (6.7-8.2)
[2021-06-06] MEDS: NYSTATIN POWDER 15 GM TOP SCH (08:46)
[2021-06-06] MEDS: SODIUM CHLORIDE FLUSH 0.9% 10 ML SYRINGE IVP SCH (08:52)
[2021-06-06] MEDS ORDERED: amLODIPine 5 MG TABLET PO SCH (09:00)
[2021-06-06] MEDS ORDERED: NON FORMULARY MED (Amlodipine Besylate [Norvasc] 10 MG Tablet) PO SCH (09:00)
[2021-06-06] MEDS ORDERED: allopurinoL 100 MG TABLET PO SCH (09:00)
[2021-06-06] MEDS ORDERED: COLCHICINE 0.6 MG TABLET PO SCH (09:00)
[2021-06-06] MEDS ORDERED: ACETAMINOPHEN 500 MG TABLET PO PRN (09:50)
[2021-06-06] MEDS: D5.45NS W/20 MEQ KCL 1,000 ML IV SCH (11:11)
[2021-06-06] MEDS: HYDROmorphone 1 MG/ML CARPUJECT IVP PRN (11:29)
--- NOTE | 2021-06-06 11:42 | Discharge Plan ---
Discharge Plan Problem Reviewed?: Yes Disposition: Home, Self Care Condition: Stable Diet: Cardiac (low fat diet) Activity Restrictions: Activity as Tolerated Shower Restrictions: No (fall precaution) Instruction Topics: Pancreatitis, Pancreatitis Acute Dc, Heart Risk Health Concerns: pancreatitis, chest pain Plan of Treatment: you have no abdominal pain, your Lipase is down to normal arrange. Your pancreatitis is resolved now. You tolerated diet. You may followup with PCP to have GI surgeon as out-pt to consider gallbladder removal if you continue to have symptoms. you may continue to have low fat diet, advanced diet as tolerated. Your serial troponin are negative for acute NC and EKG test does not reveal acute ischemic change. you have no more chest pain. You may followup with your PCP to have stress test as out-pt. Strongly advise you avoid drinking of alcohol which could induce your pancreatitis. Care Goals: Stabilization and resolved or improved of your pancreatitis. Assessment: Discussed the care plan with you, answered your question, you understood and agreed Additional Instructions or Follow Up instructions: You may follow-up with your PCP in 1 week, follow-up with stress test as outpatient. should your symptoms return or worsen, you may present to the ER or call 911 for help No Smoking: If you smoke, Please STOP! Call for help.
--- NOTE | 2021-06-06 11:54 | DISCHARGE SUMMARY ---
"Discharge Summary Admit Date: 06/04/21 Discharge Date: 06/06/21 Discharging Provider: Gerard Shoemaker Condition at Discharge: Stable Discharge Disposition: 01 Home, Self Care Discharge Facility Name: home - DIAGNOSES Discharge Diagnoses with Status of Each Condition: (1) Pancreatitis resolved. Lipase is 45. Patient has no abdominal pain, patient tolerated regular diet. pt is advised to followup with GI surgeon for his gallbladder sludge if pt continue to have pancreatitis, strongly advise pt quit alcohol, and pt agree to quit. (2) Chest pain pt has no more chest pain. serial troponin are negative, EKG show no acute Ischemic change. pt is advised To follow-up with His PCP to have stress test As outpatient, pt verbally state he will followup with PCP to have stress test (3) HTN (hypertension) stable, Resume home meds (4) Sleep apnea with use of continuous positive airway pressure (CPAP) Resume CPAP, followup with camp tender as out-pt (5) CKD (chronic kidney disease) stage 3, GFR 30-59 ml/min improved significantly. pt's creatinine is 1.1 (6) Gout stable, Resume home meds (7) Macrocytic anemia stable (8) Pressure ulcer of left thigh chronic and stable, followup with PCP and wound care as out-pt (9) Morbid obesity with BMI of 50.0-59.9, adult advise safely loss of weight - HPI History of Present Illness: refer from Dr. Shabnam West's HPI on 06/04/21 This is a 71-year-old white male with history of morbid obesity (BMI 50), hypertension, gout, and hyperlipidemia. He used to drink alcohol heavily, but quit 7 years ago, now drinks only rareely. Patient presents with sudden onset o f chest pain and upper abdominal pain that occurred after he ate a pork chop. It was assosiated with SOB and sweating. He has never had such symptoms before. His gave him a baby aspirin and they called an ambulance. By the time he presented to the ED the chest pain was gone (it lasted 30-45 min). His exam showed a tender upper abdomen. He underwent an abdominal ultrasound which showed suspicious gallbladder findings. Then he had a CT of the abdomen which showed mild pancreatitis and no gallbladder abnormality. Labs showed white count normal, AST and ALT mildly elevated, normal bilirubin, and elevated lipase level of 2500. The patient is being admitted as Inpatient for treatment of acute pancreatitis and evaluation of chest pain in a male with significant risk factors. We discussed his CODE BLUE wishes and he wants to be a Full Code. - CONSULTS | PROCEDURES Consultations: Dr. Bhatia Procedures: no procedure - ALLERGIES Allergies/Adverse Reactions: Allergies Allergy/AdvReac Type Severity Reaction Status Date / Time No Known Drug Allergies Allergy Verified 06/04/21 17:39 - MEDICATIONS Home Medications: Ambulatory Orders Medication Instructions Recorded Confirmed Amlodipine Besylate [Norvasc] 10 mg PO DAILY 06/04/21 06/04/21 Colchicine 0.6 mg PO DAILY 06/04/21 06/04/21 Losartan Potassium [Cozaar] 100 mg PO BID 06/04/21 06/04/21 Simvastatin [Zocor] 40 mg PO HS 06/04/21 06/04/21 allopurinoL [Zyloprim] 100 mg PO DAILY 06/04/21 06/04/21 metOLazone [Metolazone] 5 mg PO DAILY 06/04/21 06/04/21 - PHYSICAL EXAM AT DISCHARGE General Appearance: positive: No acute distress, Alert. negative: Lethargic Eyes Bilateral: positive: Normal inspection, PERRL, No lid inflammation ENT: positive: ENT inspection nml, No signs of dehydration. negative: Purulent nasal drainage Neck: positive: Nml inspection, Trachea midline. negative: Thyromegaly, Tracheal deviation Respiratory: positive: Chest non-tender, No respiratory distress, Breath sounds nml. negative: Wheezes, Rales Cardiovascular: positive: Regular rate & rhythm. negative: Tachycardia, Bradycardia, Systolic murmur Peripheral Pulses: positive: 2+ Abdomen: positive: Non-tender, Nml bowel sounds, No distention. negative: Tenderness Back: positive: Nml inspection Skin: positive: Warm, Dry, Other (redness and uler at sacral area, and thigh without warmth or tenderness or swelling.). negative: Cyanosis Extremities: positive: Non-tender. negative: Pedal edema Neurologic/Psychiatric: positive: Oriented x3, Sensation nml, Mood/affect nml. negative: Weakness, Sensory loss, Facial droop, Slurred/abnml speech, Depressed mood/affect - LABS Result Diagrams: 06/06/21 04:40 06/06/21 04:40 - FOLLOW UP Follow Up: you have no abdominal pain, your Lipase is down to normal arrange. Your pancreatitis is resolved now. You tolerated diet. You may followup with PCP to have GI surgeon as out-pt to consider gallbladder removal if you continue to have symptoms. you may continue to have low fat diet, advanced diet as tolerated. Your serial troponin are negative for acute NM and EKG test does not reveal acute ischemic change. you have no more chest pain. You may followup with your PCP to have stress test as out-pt. Strongly advise you avoid drinking of alcohol which could induce your pancreatitis. You may followup with your PCP and out-pt wound care for your chronic ulcers. You may follow-up with your PCP in 1 week, follow-up with stress test as outpatient. should your symptoms return or worsen, you may present to the ER or call 911 for help - TIME SPENT Time Spent in Discharge (Minutes): 30"
[2021-06-06 12:32] VITALS: BP 144/68
== END 2021-06-06 13:00 | disposition home or self-care (01) | DRG 439 ==
LOC: ED 17:21 → MS2 21:32
PROVIDERS: ADMIT Internal Medicine; ATTEND Nurse Practitioner Gerontology
DX: K85.90 Acute pancreatitis without necrosis or infection, unspecified (principal); Z68.43 Body mass index [BMI] 50.0-59.9, adult; R07.9 Chest pain, unspecified; G47.30 Sleep apnea, unspecified; I12.9 Hypertensive chronic kidney disease with stage 1 through stage 4 chronic kidney disease, or unspecified chronic kidney disease; N18.30 Chronic kidney disease, stage 3 unspecified; M10.9 Gout, unspecified; D53.9 Nutritional anemia, unspecified; E66.01 Morbid (severe) obesity due to excess calories; E78.5 Hyperlipidemia, unspecified; Z20.822 Contact with and (suspected) exposure to COVID-19; Z87.891 Personal history of nicotine dependence; L89.899 Pressure ulcer of other site, unspecified stage; M15.9 Polyosteoarthritis, unspecified
CPT/HCPCS: 0202U; 36415; 71045; 74177; 76705; 80053; 80061; 80320; 82607; 82746; 83690; 83735; 84484; 85025; 93005; 99284; 99285; A9270; J0131; J1170; Q9967; 83721

== ENCOUNTER 2022-01-28 19:07 | Outpatient (CLI) | payer OTHER | END 2022-01-28 19:08 | disposition EMS.NT | LOC: EMS 19:07 | DX: Z03.89 Encounter for observation for other suspected diseases and conditions ruled out (principal) ==

== ENCOUNTER 2023-04-25 20:52 | Outpatient (CLI) | payer MEDICARE, OTHER | END 2023-04-25 23:59 | disposition EMS.NT | LOC: EMS 20:52 | DX: Z03.89 Encounter for observation for other suspected diseases and conditions ruled out (principal) ==

== ENCOUNTER 2023-07-11 12:29 | Outpatient (CLI) | payer MEDICARE, OTHER | END 2023-07-11 12:30 | disposition home or self-care (01) | LOC: DI 12:29 | PROVIDERS: ATTEND Student in an Organized Health Care Education/Training Program | DX: R60.0 Localized edema (principal) | CPT/HCPCS: 93306 ==

== ENCOUNTER 2023-10-15 11:37 | Outpatient (CLI) | payer MEDICARE ==
[2023-10-15 17:47] LABS: HCT - HEMATOCRIT 40.3 % (42.0-52.0); MEAN CORPUSCULAR HEMOGLOBIN 31.7 pg (27.0-31.0); MEAN CORPUSCULAR HGB CONC 29.8 g/dL (32.0-36.0); MEAN CORPUSCULAR VOLUME 106.3 fL (80.0-94.0); MEAN PLATELET VOLUME 10.2 fL (7.4-11.4); RED BLOOD COUNT 3.79 10^6/uL (4.70-6.10); RED CELL DISTRIBUTION WIDTH 14.6 % (12.0-15.0); WHITE BLOOD COUNT 9.4 x10^3/uL (4.8-10.8)
[2023-10-15 18:13] LABS: ALBUMIN 3.9 g/dL (3.2-5.5); ALBUMIN/GLOBULIN RATIO 1.1 (1.0-2.2); ALKALINE PHOSPHATASE 85 IU/L (42-121); ALT ALANINE AMINOTRANSFERASE 16 IU/L (10-60); AST ASPARTATE AMINOTRANSFERASE 21 IU/L (10-42); BILIRUBIN,TOTAL 0.3 mg/dL (0.2-1.0); BUN - BLOOD UREA NITROGEN 43 mg/dL (6-20); CALCIUM 9.5 mg/dL (8.5-10.3); CARBON DIOXIDE - CO2 27 mmol/L (21-32); CHLORIDE 106 mmol/L (101-111); CHOL/HDL RATIO 1.9 (<5.0); CHOLESTEROL 135 mg/dL; CREATININE 1.7 mg/dL (0.6-1.3); GFR - MDRD 40 (>89); GLUCOSE 93 mg/dL (74-104); HDL CHOLESTEROL 70 mg/dL; LDL CHOLESTEROL,CALCULATED 49 mg/dL; LDL/HDL RATIO 0.7 (<3.6); POTASSIUM 5.1 mmol/L (3.5-4.5); SODIUM 140 mmol/L (135-145); TOTAL PROTEIN 7.5 g/dL (6.4-8.9); TRIGLYCERIDES 78 mg/dL (48-352); VLDL CHOLESTEROL 16 mg/dL
[2023-10-15 18:26] LABS: THYROID STIMULATING HORMONE 2.91 uIU/mL (0.34-5.60)
[2023-10-15 20:48] LABS: ESTIMATED AVERAGE GLUCOSE 108 mg/dL (70-100); HEMOGLOBIN A1c% 5.4 % (4.27-6.07)
== END 2023-10-15 11:38 | disposition home or self-care (01) ==
LOC: LAB.N 11:37
PROVIDERS: ATTEND Family Medicine
DX: I51.9 Heart disease, unspecified (principal); N18.31 Chronic kidney disease, stage 3a; I89.0 Lymphedema, not elsewhere classified; E66.01 Morbid (severe) obesity due to excess calories
CPT/HCPCS: 36415; 80053; 80061; 83036; 83721; 83880; 84443; 85027

== ENCOUNTER 2023-12-11 11:04 | Outpatient (CLI) | payer MEDICARE ==
[2023-12-11 18:12] LABS: ALBUMIN 4.1 g/dL (3.2-5.5); ALBUMIN/GLOBULIN RATIO 1.5 (1.0-2.2); BILIRUBIN,TOTAL 0.4 mg/dL (0.2-1.0); CALCIUM 8.9 mg/dL (8.5-10.3); CREATININE 1.8 mg/dL (0.6-1.3); TOTAL PROTEIN 6.9 g/dL (6.4-8.9)
[2023-12-11 18:21] LABS: THYROID STIMULATING HORMONE 2.13 uIU/mL (0.34-5.60)
[2023-12-11 21:10] LABS: ESTIMATED AVERAGE GLUCOSE 111 mg/dL (70-100); HEMOGLOBIN A1c% 5.5 % (4.27-6.07)
== END 2023-12-11 11:05 | disposition home or self-care (01) ==
LOC: LAB.N 11:04
PROVIDERS: ATTEND Family Medicine
DX: E66.01 Morbid (severe) obesity due to excess calories (principal)
CPT/HCPCS: 36415; 80053; 83036; 84443